=== PATIENT | female | born 1955 | race Caucasian/White ===

== ENCOUNTER 2019-01-03 12:29 | Emergency (ER) | payer BC, OTHER ==
[2019-01-03] MEDS ORDERED: Diphtheria,Pertussis(Acell),Tetanus Vaccine 0.5 ML Syringe IM ONE (12:41)
--- NOTE | 2019-01-03 13:03 | EDM.PDOC ---
ED HPI GENERAL MEDICAL PROBLEM - General Chief Complaint: Body Fluid Exposure Stated Complaint: NEEDLE STICK AT WORK Time Seen by Provider: 01/03/19 12:40 Source of Information: Reports: Patient History Limitations: Reports: No Limitations - History of Present Illness INITIAL COMMENTS - FREE TEXT/NARRATIVE: HISTORY AND PHYSICAL: History of present illness: Patient is a 63-year-old female presenting to the emergency room for a "needle stick injury". Patient is a nurse at [employer] and states that while giving an influenza injection to a patient, she was asked struck by the needle in her left "pinkie finger just barely". Patient denies any fever, chills, headache, change in vision, syncope or near syncope. Denies any chest pain, back pain, shortness of breath or cough. Denies any abdominal pain, nausea, vomiting, diarrhea, constipation or dysuria. Has not noted any blood in urine or stool. Patient has been eating and drinking appropriately. Review of systems: As per history of present illness and below otherwise all systems reviewed and negative. Past medical history: As per history of present illness and as reviewed below otherwise noncontributory. Surgical history: As per history of present illness and as reviewed below otherwise noncontributory. Social history: See social history for further information Family history: As per history of present illness and as reviewed below otherwise noncontributory. Physical exam: General: Well developed and well nourished 63-year-old female. Alert and oriented. Nontoxic appearing and in no acute distress. No signs have been reviewed by me. HEENT: Atraumatic, normocephalic, pupils equal and reactive bilaterally, negative for conjunctival pallor or scleral icterus, mucous membranes moist, trachea midline. No drooling or trismus noted. No meningeal signs. No hot potato voice noted. Lungs: Clear to auscultation, breath sounds equal bilaterally, chest nontender. Heart: S1S2, regular rate and rhythm without overt murmur Abdomen: Soft, nondistended, nontender. Negative for masses or hepatosplenomegaly. Negative for costovertebral tenderness. Skin: Small needle stick eleazar to the left pinky finger just underneath the nail , otherwise it is intact, warm, dry. No lesions or rashes noted. Extremities: See skin, otherwise moves all extremities per self without difficulty or deficits, negative for cords or calf pain. Neurovascular unremarkable. Neuro: Awake, alert, oriented. Cranial nerves II through XII unremarkable. Cerebellum unremarkable. Motor and sensory unremarkable throughout. Exam nonfocal. Notes: Supportive care measures were reviewed and discussed. Voices understanding and is agreeable to plan of care. Denies any further questions or concerns at this time. Diagnostics: Hep B Panel, HIV Therapeutics: Wound Care, Tetanus Prescription: None Impression: Needle Stick Plan: 1. Keep the skin clean and dry. Continue to monitor for signs of improvement. Keep the area covered while at work. 2. The labs that were drawn today are send outs, you should receive a phone call if anything is abnormal. Otherwise you may call our medical records if you do need these results. 3. Follow-up with your primary care provider as needed. Return to the ED as needed and as discussed. Definitive disposition and diagnosis as appropriate pending reevaluation and review of above. - Related Data Allergies Allergy/AdvReac Type Severity Reaction Status Date / Time diclofenac Allergy Itching Verified 01/03/19 12:49 Iodinated Contrast Media Allergy Itching Verified 01/03/19 12:49 Home Meds: Home Meds Albuterol [Proventil Neb Soln] 0.63 mg NEB Q2H 01/03/19 [History] Escitalopram Oxalate [Lexapro] 5 mg PO ASDIRECTED 01/03/19 [History] Fluticasone/Salmeterol [Advair 100-50] 1 puff INH BID 01/03/19 [History] Past Medical History Respiratory History: Reports: Asthma - Infectious Disease History Infectious Disease History: Reports: None - Past Surgical History GI Surgical History: Reports: Cholecystectomy Social & Family History - Family History Family Medical History: Noncontributory - Tobacco Use Smoking Status *Q: Never Smoker Second Hand Smoke Exposure: No - Caffeine Use Caffeine Use: Reports: Coffee, Soda - Recreational Drug Use Recreational Drug Use: No ED ROS GENERAL - Review of Systems Review Of Systems: ROS reveals no pertinent complaints other than HPI. ED EXAM, GENERAL - Physical Exam Exam: See Below (See dictation) Course - Vital Signs Last Recorded V/S: Last Vital Signs Temp 97.1 F 01/03/19 13:45 Pulse 73 01/03/19 13:45 Resp 18 01/03/19 13:45 BP 139/71 01/03/19 13:45 Pulse Ox 94 L 01/03/19 13:45 - Orders/Labs/Meds Labs: Laboratory Tests 01/03/19 Range/Units 13:01 Hep Bs Antigen Index < 0.1 (<1.0) INDEX Hep Bs Antibody Index < 3.1 mIU/mL Hep C Ab Index (CORY) 0.03 (<0.8) INDEX HIV 1&2 Ag/Ab, 4th Gen 0.2 (<1.0) INDEX Meds: Medications Discontinued Medications Generic Name Dose Route Start Last Admin Trade Name Freq PRN Reason Stop Dose Admin Diphtheria/Tetanus/Acell Pertussis 0.5 ml 01/03/19 12:41 01/03/19 13:14 Adacel IM 01/03/19 12:42 Not Given .ONCE ONE Departure - Departure Time of Disposition: 13:02 Disposition: Home, Self-Care 01 Clinical Impression: Needle stick injury of finger - Discharge Information Instructions: Needlestick Injury, [id number]-[id number] Referrals: PCP,Unknown [Primary Care Provider] - Forms: ED Department Discharge Additional Instructions: The following information is given to patients seen in the emergency department who are being discharged to home. This information is to outline your options for follow-up care. We provide all patients seen in our emergency department with a follow-up referral. The need for follow-up, as well as the timing and circumstances, are variable depending upon the specifics of your emergency department visit. If you don't have a primary care physician on staff, we will provide you with a referral. We always advise you to contact your personal physician following an emergency department visit to inform them of the circumstance of the visit and for follow-up with them and/or the need for any referrals to a consulting specialist. The emergency department will also refer you to a specialist when appropriate. This referral assures that you have the opportunity for follow-up care with a specialist. All of these measure are taken in an effort to provide you with optimal care, which includes your follow-up. Under all circumstances we always encourage you to contact your private physician who remains a resource for coordinating your care. When calling for follow-up care, please make the office aware that this follow-up is from your recent emergency room visit. If for any reason you are refused follow-up, please contact the [facility] Emergency Department at and asked to speak to the emergency department charge nurse. PERRY [facility] [address] [place] [address] [facility] [address] [place] [address] 1. Keep the skin clean and dry. Continue to monitor for signs of improvement. Keep the area covered while at work. 2. The labs that were drawn today are send outs, you should receive a phone call if anything is abnormal. Otherwise you may call our medical records if you do need these results. 3. Follow-up with your primary care provider as needed. Return to the ED as needed and as discussed.
== END 2019-01-03 13:45 | disposition home or self-care (01) ==
LOC: MW.ED 12:29
DX: S61.237A Puncture wound without foreign body of left little finger without damage to nail, initial encounter (principal); J45.909 Unspecified asthma, uncomplicated; Z79.899 Other long term (current) drug therapy; Z79.51 Long term (current) use of inhaled steroids; Z91.041 Radiographic dye allergy status; W46.1XXA Contact with contaminated hypodermic needle, initial encounter; Y93.89 Activity, other specified; Y92.89 Other specified places as the place of occurrence of the external cause; Y99.0 Civilian activity done for income or pay
CPT/HCPCS: 36415; 86706; 86803; 87340; 87389; 99282; 99283

== ENCOUNTER 2020-03-24 06:29 | Day surgery (SDC) | payer BC, OTHER ==
[~2020-03-24 06:29] MED LIST: Lactated Ringers 1,000 ML IV SCH; Sodium Chloride 0.9% 10 ML SDV IV PRN; Sodium Chloride 0.9% 10 ML Syringe FLUSH PRN; Sodium Chloride 0.9% 2.5 ML Syringe FLUSH PRN
--- NOTE | 2020-03-24 07:12 | PCM.PREANE ---
Preanesthetic Assessment - Anesthesia/Transfusion/Family Hx Anesthesia History: Prior Anesthesia Without Reaction Family History of Anesthesia Reaction: No Transfusion History: No Prior Transfusion(s) Intubation History: Unknown - Review of Systems General: No Symptoms Pulmonary: No Symptoms Cardiovascular: No Symptoms Gastrointestinal: No Symptoms, Other (father had colon cancer) Neurological: No Symptoms Other: Reports: None - Physical Assessment Height: 5 ft 5 in Weight: 133.356 kg ASA Class: 3 Mental Status: Alert & Oriented x3 Airway Class: Mallampati = 2 Dentition: Reports: Normal Dentition, [place](s) (multiple (back)) Thyro-Mental Finger Breadths: 3 Mouth Opening Finger Breadths: 3 ROM/Head Extension: Full Lungs: Clear to Auscultation, Normal Respiratory Effort Cardiovascular: Regular Rate, Regular Rhythm - Allergies Allergies/Adverse Reactions: Allergies Allergy/AdvReac Type Severity Reaction Status Date / Time diclofenac Allergy Itching Verified 03/18/20 10:38 Iodinated Contrast Media Allergy Itching Verified 03/18/20 10:38 - Blood Blood Available: No - Anesthesia Plan Pre-Op Medication Ordered: None - Acknowledgements Anesthesia Type Planned: MAC Pt an Appropriate Candidate for the Planned Anesthesia: Yes Alternatives and Risks of Anesthesia Discussed w Pt/Guardian: Yes Pt/Guardian Understands and Agrees with Anesthesia Plan: Yes PreAnesthesia Questionnaire HEENT History: Reports: Other (See Below) Other HEENT History: wears glasses Cardiovascular History: Reports: None Respiratory History: Reports: Asthma (moderate, on good day can walk two blocks), Sleep Apnea (not tested yet, said she stop breathing at night) Gastrointestinal History: Reports: GERD, Hiatal Hernia Genitourinary History: Reports: None PERSONAL CARE ASSISTANT History: Reports: Polycystic Ovaries Musculoskeletal History: Reports: None Neurological History: Reports: None Psychiatric History: Reports: None Endocrine/Metabolic History: Reports: Obesity/BMI 30+ (BMI 48.9) Hematologic History: Reports: None Immunologic History: Reports: None Oncologic (Cancer) History: Reports: None Dermatologic History: Reports: None - Infectious Disease History Infectious Disease History: Reports: None - Past Surgical History HEENT Surgical History: Reports: Tonsillectomy GI Surgical History: Reports: Cholecystectomy, Colonoscopy (more than 10 years ago- normal), EGD Female Surgical History: Reports: Tubal Ligation, Other (See Below) (exp loratory laparoscopy) - SUBSTANCE USE Tobacco Use Status *Q: Never Tobacco User - HOME MEDS Home Medications: Home Meds Albuterol [Proventil Neb Soln] 0.63 mg NEB Q2H 01/03/19 [History] Escitalopram Oxalate [Lexapro] 5 mg PO ASDIRECTED 01/03/19 [History] Fluticasone/Salmeterol [Advair 100-50] 1 puff INH BID 01/03/19 [History] Albuterol [Ventolin HFA] 1 - 2 puff INH ASDIRECTED PRN 03/18/20 [History] Cyanocobalamin (Vitamin B-12) [Cyanocobalamin Injection] 1 injection IM ASDIRECTED 03/18/20 [History] Esomeprazole Magnesium [Nexium 24Hr] 1 tab PO DAILY 03/18/20 [History] Furosemide [Lasix] 1 tab PO DAILY PRN 03/18/20 [History] Loratadine [Claritin] 1 tab PO ASDIRECTED PRN 03/18/20 [History] Sucralfate 1 tab PO QID PRN 03/18/20 [History] - CURRENT (IN HOUSE) MEDS Current Meds: Current Medications Lactated Ringer's (Ringers, Lactated) 1,000 mls @ 125 mls/hr IV ASDIRECTED CORY Sodium Chloride (Saline Flush) 10 ml FLUSH ASDIRECTED PRN PRN Reason: Keep Vein Open Sodium Chloride (Saline Flush) 2.5 ml FLUSH ASDIRECTED PRN PRN Reason: Keep Vein Open Sodium Chloride (Saline Flush) 10 ml FLUSH ASDIRECTED PRN PRN Reason: Keep Vein Open Sodium Chloride (Saline Flush) 2.5 ml FLUSH ASDIRECTED PRN PRN Reason: Keep Vein Open Sodium Chloride (Normal Saline) 10 ml IV ASDIRECTED PRN PRN Reason: IV Use
[2020-03-24] MEDS ORDERED: Propofol 200 MG/20 ML SDV ONE ×4 (07:21→08:41)
[2020-03-24] MEDS ORDERED: Lidocaine 2% 5 ML SDV ONE (07:21)
[2020-03-24] MEDS ORDERED: fentaNYL 100 MCG/2 ML SDV ONE (07:21)
[2020-03-24] MEDS ORDERED: Ketamine 500 mg/10 ML MDV ONE (07:42)
[2020-03-24] MEDS ORDERED: Midazolam 1 MG/ML 2 ML SDV ONE (07:43)
--- NOTE | 2020-03-24 08:55 | PCM.OPNOTE ---
- General Post-Op/Procedure Note Date of Surgery/Procedure: 03/24/20 Operative Procedure(s): Diagnostic EGD and colonoscopy Findings: Small hiatal hernia, rectal polyp Pre Op Diagnosis: Family history of colon cancer, GERD, epigastric pain Post-Op Diagnosis: Rectal polyp, hiatal hernia Anesthesia Technique: [facility] Primary Surgeon: Georgette Mullen Condition: Good
--- NOTE | 2020-03-24 09:12 | PCM.POSTAN ---
POST ANESTHESIA ASSESSMENT - MENTAL STATUS Mental Status: Alert, Oriented - VITAL SIGNS Vital Signs: Last Vital Signs Temp 36.4 C 03/24/20 07:13 Pulse 86 03/24/20 09:06 Resp 13 03/24/20 09:06 BP 140/65 03/24/20 09:06 Pulse Ox 95 03/24/20 09:06 - RESPIRATORY Respiratory Status: Respiratory Rate WNL, Airway Patent, O2 Saturation Stable - CARDIOVASCULAR CV Status: Pulse Rate WNL, Blood Pressure Stable - GASTROINTESTINAL GI Status: No Symptoms - POST OP HYDRATION Hydration Status: Adequate & Stable - OBSERVATIONS Free Text/Narrative:: The patient appears comfortable, and in no acute distress. There were no apparent anesthetic complications at this time. Discharge to phase 2.
--- NOTE | 2020-03-24 09:43 | PCM48HPAN ---
Post Anesthesia Note - EVALUATION WITHIN 48HRS OF ANESTHETIC Vital Signs in Normal Range: Yes Patient Participated in Evaluation: Yes Respiratory Function Stable: Yes Airway Patent: Yes Cardiovascular Function Stable: Yes Hydration Status Stable: Yes Pain Control Satisfactory: Yes Nausea and Vomiting Control Satisfactory: Yes Mental Status Recovered: Yes Vital Signs: Last Vital Signs Temp 36.4 C 03/24/20 07:13 Pulse 86 03/24/20 09:06 Resp 13 03/24/20 09:06 BP 140/65 03/24/20 09:06 Pulse Ox 95 03/24/20 09:06 - COMMENTS/OBSERVATIONS Free Text/Narrative:: No anesthesia problems
--- NOTE | 2020-03-24 12:00 | OR ---
SURGEON: GEORGETTE MULLEN MD DATE OF PROCEDURE: 03/24/2020 PREOPERATIVE DIAGNOSES: 1. Family history of colon cancer. 2. Gastroesophageal reflux disease. 3. Epigastric pain. POSTOPERATIVE DIAGNOSES: 1. Hiatal hernia. 2. Rectal polyp. 3. Incisional hernia. PROCEDURE PERFORMED: Diagnostic esophagogastroduodenoscopy and colonoscopy. PRIMARY SURGEON: Endoscopist: Dr. Georgette Mullen. ANESTHESIA: MAC. INSTRUMENT USED: Olympus endoscope and colonoscope. EXTENT OF EXAM: To the second portion of the duodenum, to the cecum. PREPARATION: Good. LIMITATIONS: None. INDICATIONS FOR EXAMINATION: The patient is a 64-year-old female with a history of GERD, but with worsening symptoms. She has also been experiencing some epigastric pain. She has a family history of colon cancer. Her father was diagnosed with colon cancer at the age of 70. Her last colonoscopy was 10 years ago. On physical exam, she was noted to have a hernia at the previous incision site around the umbilicus. A CT scan was performed which showed a fat-containing hernia. It was felt that this may be the cause of her epigastric pain. However, given her worsening GERD symptoms, the decision was made to proceed with diagnostic EGD. Given her family history, we decided to proceed with a colonoscopy. The patient and I discussed the procedures, expected perioperative course, and the risks. She verbalized understanding and wished to proceed. PROCEDURE IN DETAIL: The patient was brought into the OR and placed in the left lateral decubitus position on the OR cart. A time-out was completed verifying the patient's name, age, date of , allergies, and procedure to be performed. Monitored anesthesia care was induced and a nasal trumpet was placed. Continuous oxygen was provided via nasal cannula throughout the procedure. A bite-block was placed in the patient's mouth before anesthesia was given. After adequate anesthesia was achieved, a well-lubricated endoscope was placed in the patient's mouth and advanced under direct visualization to the second portion of duodenum. This appeared normal and a photograph was taken. The scope was then straightened out and fully withdrawn while examining the color, texture, anatomy, and integrity of the upper GI tract. The duodenum appeared normal. The scope was brought into the stomach and a photograph taken of the pylorus and GE junction. The patient was noted to have a very small hiatal hernia. Photographs of these were taken. Biopsies were taken of the gastric antrum, body, and fundus and sent for histologic review and H. pylori testing. The scope was then brought into the distal esophagus and a photograph taken of the Z- line. Overall, this appeared normal. The distal esophageal mucosa showed no signs of esophagitis, but a biopsy was taken 1 cm above the Z-line and sent to pathology, labeled as esophagus. The scope was removed and this portion of procedure was terminated. A digital rectal exam was performed. This exam was within normal limits. A well-lubricated colonoscope was inserted in the rectum and advanced under direct visualization to the level of the cecum. The cecum was identified by both visual and anatomic landmarks. A photograph was taken of the cecal cap, however, I was unable to retroflex the scope within the cecum due to looping of the scope more proximally. The scope was fully withdrawn while examining the color, texture, anatomy, and integrity of the mucosa from the cecum to the anal canal. The patient had normal-appearing colonic mucosa. The scope was brought into the rectum and retroflexed to allow visualization of the anal canal opening. Just above the hemorrhoidal tissue, the patient was noted to have a sessile polyp. A photograph of this was taken. A cold biopsy forceps was used to remove this. Sent to pathology, labeled as rectal polyp. The scope was then straightened out and fully withdrawn. The cecum to anus time was 12 minutes. The patient tolerated the procedure well and was transferred to the PACU in stable condition. ENDOSCOPIC DIAGNOSES: 1. Hiatal hernia. 2. Rectal polyp. 3. Incisional hernia. RECOMMENDATIONS: Follow up in clinic in 2 weeks. Likely, the patient's epigastric pain may be due to the incisional hernia that was discovered in clinic and on CT scan. We will discuss this further when she comes to clinic. ERIC / CHECO /[id number]
== END 2020-03-24 09:42 | disposition home or self-care (01) ==
LOC: MW.SDS 06:29
PROVIDERS: ATTEND Surgery
DX: Z12.11 Encounter for screening for malignant neoplasm of colon (principal); K62.1 Rectal polyp; K21.9 Gastro-esophageal reflux disease without esophagitis; K44.9 Diaphragmatic hernia without obstruction or gangrene; K43.0 Incisional hernia with obstruction, without gangrene; E66.9 Obesity, unspecified; G89.29 Other chronic pain; Z80.0 Family history of malignant neoplasm of digestive organs; Z88.8 Allergy status to other drugs, medicaments and biological substances; Z91.041 Radiographic dye allergy status; Z79.899 Other long term (current) drug therapy; Z98.890 Other specified postprocedural states; Z90.49 Acquired absence of other specified parts of digestive tract; Z68.42 Body mass index [BMI] 45.0-49.9, adult
CPT/HCPCS: 43239; 45380; 88305; 88312; J2001; J2250; J2704; J3010; J7120; 00813